=== PATIENT | male | born 1975 | race Caucasian/White ===

== ENCOUNTER 2016-09-20 06:00 | Inpatient (IN) | payer OTHER ==
[2016-09-14 13:20] VITALS: BMI 27.6
[2016-09-20] MEDS ORDERED: BUPIVACAINE HCL/PF 0.5% (5MG/ML) 10 ML VIAL ONE (07:05)
[2016-09-20] MEDS ORDERED: MIDAZOLAM HCL 2 MG/2 ML SINGLE DOSE VIAL ONE ×3 (07:09→08:40)
[2016-09-20] MEDS ORDERED: CEFAZOLIN 2 GM in DEXTROSE 5%-WATER - 100 ML IVPB ONE (07:09)
[2016-09-20] MEDS ORDERED: oxyCODONE HCL 10 MG SUSTAINED ACTING TABLET PO STA (07:09)
[2016-09-20] MEDS ORDERED: methylPREDNISolone ACET (DEPO) 40 MG/1 ML VIAL ONE (07:19)
[2016-09-20] MEDS ORDERED: BUPIVACAINE HCL/PF 2.5 MG/ML - 30 ML VIAL IJ ONE (07:19)
[2016-09-20] MEDS ORDERED: THROMBIN (BOVINE) 5,000 UNIT VIAL TP ONE ×2 (07:19→09:28)
[2016-09-20] MEDS ORDERED: LIDOCAINE 1%/EPI 1:100000 (20 ML MULTI DOSE VIAL) ONE (07:19)
--- NOTE | 2016-09-20 07:46 | HP ---
History & Physical Update - History History: No Change - Physical Physical: No Change - Assessment Assessment: No Change - Plan Plan: No Change
[2016-09-20] MEDS ORDERED: PROPOFOL 20 ML ONE ×2 (08:14→08:50)
[2016-09-20] MEDS ORDERED: LIDOCAINE 1%/EPI 1:100000 (50 ML MULTI DOSE VIAL) INF ONE (08:15)
[2016-09-20] MEDS ORDERED: ceFAZolin SODIUM 1 GM VIAL ONE (08:21)
[2016-09-20] MEDS ORDERED: methylPREDNISolone ACET (DEPO) 40 MG/1 ML VIAL IM ONE ×2 (09:25→09:47)
[2016-09-20] MEDS ORDERED: GELATIN SPONGE,ABSORBABLE 1 GM PACKET TP ONE (09:29)
[2016-09-20] MEDS ORDERED: BUPIVACAINE HCL/PF 0.25% (2.5MG/ML) 10 ML VIAL IJ ONE (09:47)
[2016-09-20] MEDS: ACETAMINOPHEN/CAFFEINE/BUTALBITAL 1 TAB PO ONE ×2 (10:15→18:55)
[2016-09-20] MEDS ORDERED: ONDANSETRON 4 MG/2 ML VIAL IVPUSH PRN ×2 (10:20→12:33)
--- NOTE | 2016-09-20 10:28 | OP ---
Operative Note - Note: Operative Date: 09/20/16 Pre-Operative Diagnosis: L4-L5 spinal stenosis Operation: laminectomy of L4-L5 with repair of dural tear Surgeon: David Turner Surveillance Director: Magalis Iqbal Anesthesiologist/PLASTIC SURGERY TECHNICIAN: Kody Lopez Anesthesia: Spinal Estimated Blood Loss (mls): 40 Fluid Volume Replaced (mls): 1,800 Operative Report Dictated: Yes
--- NOTE | 2016-09-20 10:29 | SURG ---
Surgery Health Facilities Surveyor Note Health Facilities Surveyor: Magalis Iqbal PA-C Date of Service: 09/20/16 Diagnosis: L4-L5 spinal stenosis Procedure: L4-L5 laminectomy with repiar of dural tear I was present for the entirety of the operative procedure. For further detail, please refer to operative report. Visit type - Case Type Case Type: Scheduled Admission - Emergency Emergency Visit: No - New patient This patient is new to me today: Yes Date on this admission: 09/20/16 - Critical Care Critical Care patient: No
[2016-09-20] MEDS ORDERED: oxyCODONE HCL 5 MG TABLET PO PRN ×2 (11:04)
[2016-09-20] MEDS ORDERED: ONDANSETRON 4 MG/2 ML VIAL ONE (11:08)
--- NOTE | 2016-09-20 11:55 | OP ---
DATE OF OPERATION: 09/20/2016 PREOPERATIVE DIAGNOSIS: Spinal stenosis, L4-5. POSTOPERATIVE DIAGNOSIS: Spinal stenosis, L4-5. PROCEDURE PERFORMED: 1. Laminectomy at L4-5. 2. Repair of dural tear. SURGEON: David Turner MD CHIP CRUSHER OPERATOR: BEENA Liu ESTIMATED BLOOD LOSS: 50 mL INTRAVENOUS FLUIDS: Per Anesthesia. ANESTHESIA: Spinal. COMPLICATIONS: Dural tear repaired with 5-0 Prolene suture. DISPOSITION: Patient brought to the PACU in stable condition. INDICATION FOR SURGERY: The patient is a 41-year-old gentleman who has been suffering from pain from his back, down his legs. X-rays and MRI were completed which noted that he had spinal stenosis at L4-5 secondary to a cyst. He had gone through an exhaustive course of treatment for this which included medications, physical therapy, as well as injections. Unfortunately, his pain continued to persist despite all this. At this point, risks, benefits, and alternatives were discussed, and the patient consented to surgery. DESCRIPTION OF PROCEDURE: Patient brought to the operating room by anesthesia staff. After appropriate patient identification was performed, spinal anesthesia was given. He was placed prone onto the Ej frame with all areas of bony prominences well padded. Two needles were placed into his back to hayden off the L4-5 segment and x-rays taken to confirm this as correct. Elton were removed, and 10 mL of lidocaine with epinephrine were injected into his back at the time his back was prepped and draped in a sterile manner. At this point, timeout was completed. An incision was made from the top of L4 down to the bottom of L5. Dissection was carried down to the fascia. Fascia was then split open at this time, and appropriate retractors were then placed in. A spinal needle was placed onto the L4 lamina. An x-ray was taken to confirm this as correct. At this point, the microscope was brought in. The L4-5 interspinous ligament was removed. Portions of the L4 and L5 lamina were removed. The flavum was peeled off. While performing the laminectomy, a dural tear was noticed. The dural fluid was controlled. A 5-0 Prolene suture was placed to perform a watertight closure. The decompression was completed such that by the end of the procedure, the L5 nerve root appeared to be well decompressed. Tisseel was placed over the nerve root. The fascia was closed with a No. 1 Vicryl suture. The subcutaneous tissues were closed with 2-0 Vicryl suture. Skin was closed with 3-0 Monocryl suture. Dermabond was applied. Steri-Strips were applied. A sterile dressing was applied. Patient was placed supine on the OR bed and brought to the PACU in stable condition. Javier CHILDS/[id number]
[2016-09-20] MEDS ORDERED: oxyCODONE HCL 5 MG TABLET ONE (12:01)
[2016-09-20] MEDS ORDERED: LACTATED RINGERS SOLUTION 1,000 ML IV SCH ×2 (12:30→12:45)
[2016-09-20] MEDS: HYDROmorphone HCL CARPU-JECT 1 MG/1 ML DISP.SYRIN ONE ×2 (12:39→12:50)
[2016-09-20] MEDS: diazePAM 5 MG TABLET PO ONE ×2 (12:40→18:55)
[2016-09-20] MEDS ORDERED: ACETAMINOPHEN/CAFFEINE/BUTALBITAL 1 TAB PO PRN (12:45)
[2016-09-20] MEDS ORDERED: HYDROmorphone HCL CARPU-JECT 1 MG/1 ML DISP.SYRIN ONE (13:02)
[2016-09-20] MEDS ORDERED: HYDROmorphone HCL CARPU-JECT 1 MG/1 ML DISP.SYRIN IVPUSH PRN (13:22)
[2016-09-20] MEDS ORDERED: HYDROmorphone *PCA* 10MG/50ML DISP.SYRIN PCA ONE (13:35)
[2016-09-20] MEDS ORDERED: HYDROmorphone *PCA* 10MG/50ML DISP.SYRIN PCA SCH (14:30)
[2016-09-20] MEDS: HYDROmorphone *PCA* 10MG/50ML DISP.SYRIN PCA SCH ×2 (17:50→18:56)
[2016-09-20] MEDS: LACTATED RINGERS SOLUTION 1,000 ML IV SCH (18:55)
[2016-09-21] MEDS: HYDROmorphone *PCA* 10MG/50ML DISP.SYRIN PCA SCH (05:18)
--- NOTE | 2016-09-21 09:04 | PN ---
Progress Note (short form) - Note Progress Note: 41M POD1 s/p lumbar laminectomy under spinal anesthetic. 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 Pt still states he has moderate to severe pain that is positional. NPO for possible surgery today. Continue DIRECTOR OF CONTENT AND PROGRAMMING
[2016-09-21] MEDS: LACTATED RINGERS SOLUTION 1,000 ML IV SCH (10:33)
[2016-09-21] MEDS ORDERED: ROCURONIUM BROMIDE 50 MG/5 ML VIAL ONE (15:12)
[2016-09-21] MEDS ORDERED: MIDAZOLAM HCL 2 MG/2 ML SINGLE DOSE VIAL ONE (15:12)
[2016-09-21] MEDS ORDERED: PROPOFOL 20 ML ONE (15:12)
[2016-09-21] MEDS ORDERED: GENTAMICIN SO4 80 MG/2 ML VIAL ONE (15:16)
[2016-09-21] MEDS ORDERED: BUPIVACAINE HCL/PF 0.5% (5MG/ML) 10 ML VIAL ONE (15:37)
[2016-09-21] MEDS ORDERED: ONDANSETRON 4 MG/2 ML VIAL ONE ×2 (16:14→17:32)
[2016-09-21] MEDS ORDERED: DEXAMETHASONE SOD PHOSPHATE 4 MG/1 ML VIAL ONE (16:14)
[2016-09-21] MEDS ORDERED: ceFAZolin SODIUM 1 GM VIAL ONE (16:14)
[2016-09-21] MEDS ORDERED: ceFAZolin SODIUM 1 GM VIAL IVPB ONE (16:15)
[2016-09-21] MEDS ORDERED: NEOSTIGMINE METHYLSULFATE 0.5 MG/ML - 10 ML MDV ONE (17:31)
[2016-09-21] MEDS ORDERED: GLYCOPYRROLATE 0.2 MG/1 ML VIAL ONE (17:32)
[2016-09-21] MEDS ORDERED: HYDROmorphone HCL CARPU-JECT 1 MG/1 ML DISP.SYRIN IVPUSH PRN ×3 (17:52→18:36)
[2016-09-21] MEDS ORDERED: ONDANSETRON 4 MG/2 ML VIAL IVPUSH PRN ×2 (17:52→18:32)
[2016-09-21] MEDS ORDERED: MEPERIDINE HCL CARPU-JECT 25 MG/1 ML DISP.SYRIN ONE (17:52)
[2016-09-21] MEDS ORDERED: MEPERIDINE HCL CARPU-JECT 50 MG/1 ML DISP.SYRIN IVPUSH ONE (17:54)
--- NOTE | 2016-09-21 17:54 | OP ---
Operative Note - Note: Operative Date: 09/21/16 Pre-Operative Diagnosis: Repair L4/5 durotomy Operation: Exploration, irrigation, primary repair of L4/5 durotomy with patch Post-Operative Diagnosis: Same as Pre-op Surgeon: Aries Pride Expeditionary Fighting Vehicle Crewman: Ross Obrien Anesthesiologist/HIM ASSISTANT: Kody Lopez Anesthesia: General Estimated Blood Loss (mls): 25 Drains, Volume Out (mls): 100 Fluid Volume Replaced (mls): 1,000 Operative Report Dictated: Yes
--- NOTE | 2016-09-21 17:55 | SURG ---
Surgery Assembly Member Note Assembly Member: Ross Obrien PA-C Date of Service: 09/21/16 Diagnosis: L4/5 durotomy s/p L4/5 laminectomy Procedure: Exploration, irrigation, repair L4/5 durotomy with patch I was present for the entirety of the operative procedure. For further detail, please refer to operative report. Visit type - Case Type Case Type: Scheduled Admission
[2016-09-21] MEDS ORDERED: LACTATED RINGERS SOLUTION 1,000 ML IV SCH ×3 (18:00→18:32)
[2016-09-21] MEDS ORDERED: HYDROmorphone *PCA* 10MG/50ML DISP.SYRIN PCA SCH (18:32)
[2016-09-21] MEDS ORDERED: MEPERIDINE HCL CARPU-JECT 25 MG/1 ML DISP.SYRIN IVPUSH ONE (18:32)
[2016-09-21] MEDS ORDERED: ACETAMINOPHEN/CAFFEINE/BUTALBITAL 1 TAB PO PRN (18:32)
[2016-09-21] MEDS ORDERED: HYDROmorphone HCL CARPU-JECT 2 MG/1 ML DISP.SYRIN ONE (19:13)
[2016-09-21] MEDS: oxyCODONE HCL 5 MG TABLET PO PRN ×2 (20:34→22:47)
[2016-09-22] MEDS: oxyCODONE HCL 5 MG TABLET PO PRN ×4 (02:34→09:58)
[2016-09-22] MEDS: LACTATED RINGERS SOLUTION 1,000 ML IV SCH ×2 (04:00→13:03)
[2016-09-22] MEDS ORDERED: ceFAZolin 2 GRAM PREMIX BAG IVPB SCH ×2 (07:57)
--- NOTE | 2016-09-22 08:55 | PN ---
Progress Note (short form) - Note Progress Note: This is a note for 09/21/2016 Patient seen in AM. Neuro exam notes 5/5 strength in his B/L LE and sensation intact. Patient continues to have pain in the back and headaches. When sitting him up patient began to experience increased nausea and vomiting. I had a long discussion with the patient regarding the dural tear and our attempt to fix the tear. I told him that there is a chance that the tear has not been completely fixed and he may still have continued leakage. I told him that we have a few options: 1) We can maintain him on bedrest with the hope that the tear will heal itself. This would require 24-48 hours of bedrest. 2) We can take him back to the OR and explore the tear. If it is not completely closed we can attempt a patch. I informed him that I reached out to my neurosurgery colleague for assistance on this. Risks and benefits of each were discussed with the patient Patient elected to proceed with revision. He will be transferred to [facility] under the care of Dr Peña for surgical exploration. Patient is in agreement with the plan.
[2016-09-22] MEDS: ceFAZolin 2 GRAM PREMIX BAG IVPB SCH ×2 (09:52→17:16)
[2016-09-22] MEDS ORDERED: oxyCODONE HCL 5 MG TABLET PO PRN (10:49)
[2016-09-22] MEDS: ACETAMINOPHEN 325 MG TABLET (FP) PO PRN ×2 (10:58→14:28)
--- NOTE | 2016-09-22 13:31 | CONSULT ---
Consultation: REQUESTING PROVIDER: Dr. Veliz CONSULT REQUEST: We have been asked to medically evaluate this patient for s/p neurosurgery complication. HISTORY OF PRESENT ILLNESS: This is a 41 year old male without significant past medical history brought over from [place] s/p lamenectomy on 09/20, and L4/5 durotomy repair done on . Patient had neurosurgery procedure with Dr. Kellie Orta, that involved disc herniation repair and "cyst removal", according to the patient. Surgery complication include a dura mater tear, repair was done by Dr. Veliz. Pain is currently controlled, with roxicodone. He does admit to excruciating pain when sitting up. He is most comfortable went laying flat. He does admit to one headache this morning, that has subsided, relieved by fioricet. He denies current pain, numbness, tingling, or decreased sensation of extremities. Denies fever, chills, n, v. REVIEW OF SYSTEMS: CONSTITUTIONAL: Absent: fever, chills, diaphoresis, generalized weakness, malaise, loss of appetite, weight change HEENT: Absent: rhinorrhea, nasal congestion, throat pain, throat swelling, difficulty swallowing, mouth swelling, ear pain, eye pain, visual changes CARDIOVASCULAR: Absent: chest pain, syncope, palpitations, irregular heart rate, lightheadedness , peripheral edema RESPIRATORY: Absent: cough, shortness of breath, dyspnea with exertion, orthopnea, wheezing, stridor, hemoptysis GASTROINTESTINAL: Absent: abdominal pain, abdominal distension, nausea, vomiting, diarrhea, constipation, melena, hematochezia GENITOURINARY: Absent: dysuria, frequency, urgency, hesitancy, hematuria, flank pain, genital pain MUSCULOSKELETAL: Absent: myalgia, arthralgia, joint swelling, back pain, neck pain SKIN: Absent: rash, itching, pallor HEMATOLOGIC/IMMUNOLOGIC: Absent: easy bleeding, easy bruising, lymphadenopathy, frequent infections ENDOCRINE: Absent: unexplained weight gain, unexplained weight loss, heat intolerance, cold intolerance NEUROLOGIC: Positive: headache Absent: focal weakness or paresthesias, dizziness, unsteady gait, seizure, mental status changes, bladder or bowel incontinence PSYCHIATRIC: Absent: anxiety, depression, suicidal or homicidal ideation, hallucinations. PHYSICAL EXAMINATION Vital Signs - 24 hr 09/21/16 09/21/16 09/21/16 13:55 17:53 18:00 Temperature 99.4 F 98.1 F Pulse Rate 90 94 H Respiratory 20 21 Rate Blood Pressure 159/81 160/88 O2 Sat by Pulse 95 100 Oximetry (%) 09/21/16 09/21/16 09/21/16 18:05 18:20 18:35 Temperature Pulse Rate 108 H 115 H 94 H Respiratory 16 18 16 Rate Blood Pressure 153/81 130/70 128/75 O2 Sat by Pulse 99 100 100 Oximetry (%) 09/21/16 09/21/16 09/21/16 18:50 19:05 19:20 Temperature Pulse Rate 97 H 84 82 Respiratory 16 16 18 Rate Blood Pressure 128/75 124/77 134/79 O2 Sat by Pulse 98 98 98 Oximetry (%) 09/21/16 09/21/16 09/21/16 19:35 20:30 21:00 Temperature 99 F 99.7 F H Pulse Rate 86 98 H Respiratory 16 18 18 Rate Blood Pressure 136/76 115/49 O2 Sat by Pulse 99 97 97 Oximetry (%) 09/22/16 09/22/16 09/22/16 01:59 06:00 08:30 Temperature 99.7 F H 100.0 F H 98.8 F Pulse Rate 95 H 83 97 H Respiratory 19 20 20 Rate Blood Pressure 108/50 109/63 125/63 O2 Sat by Pulse Oximetry (%) GENERAL: Laying in bed on his left side, Awake, alert, and fully oriented, in no acute distress. HEAD: Normal with no signs of trauma. EYES: Pupils equal, round and reactive to light, extraocular movements intact, sclera anicteric, conjunctiva clear. No lid lag. EARS, NOSE, THROAT: Ears normal, nares patent, oropharynx clear without exudates. Moist mucous membranes. NECK: Normal range of motion, supple without lymphadenopathy, JVD, or masses. LUNGS: Breath sounds equal, clear to auscultation bilaterally. No wheezes, and no crackles. No accessory muscle use. HEART: Regular rate and rhythm, normal S1 and S2 without murmur, rub or gallop. ABDOMEN: Soft, nontender, not distended, normoactive bowel sounds, no guarding, no rebound, no masses. No hepatomegaly or splenomegaly. MUSCULOSKELETAL: Normal range of motion at all joints. No bony deformities or tenderness. No CVA tenderness. UPPER EXTREMITIES: 2+ pulses, warm, well-perfused. No cyanosis. No clubbing. Cap refill <2 seconds. No peripheral edema. LOWER EXTREMITIES: 2+ pulses, warm, well-perfused. No calf tenderness. No peripheral edema. NEUROLOGICAL: Cranial nerves II-XII intact. Normal speech. gait not observed PSYCHIATRIC: Cooperative. Good eye contact. Appropriate mood and affect. SKIN: Warm, dry, normal turgor, no rashes or lesions noted. Incision site with dressing intact; no surrounding erythema, edema Active Medications Generic Name Dose Route Start Last Admin Trade Name Freq PRN Reason Stop Dose Admin Acetaminophen 650 mg 09/22/16 10:49 09/22/16 10:58 Tylenol - PO 09/25/16 10:48 650 mg Q4H PRN Administration PAIN Acetaminophen/Butalbital/Caffeine 1 tablet 09/21/16 18:32 09/22/16 08:48 Fioricet - PO 1 tablet Q4H PRN Administration Cefazolin Sodium/Dextrose 2 gm 09/22/16 10:00 09/22/16 09:52 Ancef 2 Gm Premixed Ivpb - IVPB 09/23/16 00:00 2 gm Q8H-IV GEORGES Administration Lactated Ringer's 1,000 mls @ 125 mls/hr 09/21/16 18:32 09/22/16 13:03 Lactated Ringers Solution IV 125 mls/hr ASDIR GEORGES Administration Oxycodone HCl 10 mg 09/22/16 10:49 Roxicodone - PO Q4H PRN PAIN ASSESSMENT/PLAN: 41 year old male no PMHX expect for disc herniation, s/p primary repair of L4/5 durotomy patch on 09/21/16. #L4-5 disc herniation, s/p L4-L5 laminectomy and dural tear repair 09/20, s/p repair of L4-L5 durotomy with patch 09/21 -pain controlled roxicodone 10mg q4h prn pain -dressing as per neurology -cbc, bmp -antibiotics for 24hrs then dc -pt eval #headaches secondary to CSF leak vs migraine -fioricet prn Dispo: We will continue to follow the patient. Thank you for this consultative opportunity. Visit type - Emergency Visit Emergency Visit: Yes ED Registration Date: 09/21/16 Care time: The patient presented to the Emergency Department on the above date and was hospitalized for further evaluation of their emergent condition. - New Patient This patient is new to me today: Yes Date on this admission: 09/23/16 - Critical Care Critical Care patient: No
--- NOTE | 2016-09-22 14:33 | PN ---
Teaching Attending Note Name of Resident: Imani Schmitt ATTENDING PHYSICIAN STATEMENT I saw and evaluated the patient. I reviewed the resident's note and discussed the case with the resident. I agree with the resident's findings and plan as documented. SUBJECTIVE: This is a 41-year-old man with a history of migraine headaches, L4- 5 disc herniation who underwent L4-L5 laminectomy and repair of dural tear by Dr. Turner on 09/20 at [facility]. 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 It was thought that the dural tear was not completely fixed and he was given the options of conservative management with 24-48 hours of bedrest or surgical exploration. He chose surgical intervention and he was transferred on 09/21 to [facility] where he underwent exploration, irrigation, and primary repair of L4-L5 durotomy with patch by Dr. Pride. He had a headache this morning when he awoke. It resolved with Fioricet. He continues to have back pain and gets relief with oxycodone/acetaminophen. OBJECTIVE: Vital Signs Period Temp Pulse Resp BP Sys/Sifuentes Pulse Ox Last 24 Hr 98.1 F-100.0 F 82-115 14-21 108-160/49-88 97-100 HEART: S1S2, RRR LUNGS: Clear ABDOMEN: Soft, non-tender, non-distended, normal BS EXTREMITIES: No edema ASSESSMENT AND PLAN: This is a 41-year-old man with a history of migraine headaches, L4-5 disc herniation 1. L4-5 disc herniation, s/p L4-L5 laminectomy and dural tear repair 09/20, s/p repair of L4-L5 durotomy with patch 09/21 - Pain control with oxycodone/acetaminophen - Activity as per neurosurgery 2. Migraine headaches - Continue Fioricet as needed
[2016-09-22] MEDS ORDERED: morphine CARPU-JECT 2 MG/1 ML DISP.SYRIN IVPUSH PRN (14:44)
[2016-09-22] MEDS ORDERED: diazePAM 5 MG TABLET PO ONE (15:48)
[2016-09-22] MEDS ORDERED: diazePAM 5 MG TABLET PO PRN (15:48)
--- NOTE | 2016-09-22 15:54 | PN ---
Progress Note, Physician Chief Complaint: S/P REPAIR OF DURAL TEAR SP LAMINECTOMY. POST OP DAY ONE History of Present Illness: PATIENT RECEIVED GENERAL ANESTHESIA FOR THE SURGERY - Current Medication List Current Medications: Active Medications Acetaminophen (Tylenol -) 650 mg PO Q4H PRN PRN Reason: PAIN Stop: 09/25/16 10:48 Last Admin: 09/22/16 14:28 Dose: 650 mg Acetaminophen/Butalbital/Caffeine (Fioricet -) 1 tablet PO Q4H PRN Last Admin: 09/22/16 08:48 Dose: 1 tablet Cefazolin Sodium/Dextrose (Ancef 2 Gm Premixed Ivpb -) 2 gm IVPB Q8H-IV GEORGES Stop: 09/23/16 00:00 Last Admin: 09/22/16 09:52 Dose: 2 gm Diazepam (Valium -) 5 mg PO ONCE ONE Stop: 09/22/16 15:49 Diazepam (Valium -) 5 mg PO Q8H PRN PRN Reason: PAIN Docusate Sodium (Colace -) 100 mg PO BID GEORGES Lactated Ringer's (Lactated Ringers Solution) 1,000 mls @ 125 mls/hr IV ASDIR GEORGES Last Admin: 09/22/16 13:03 Dose: 125 mls/hr Morphine Sulfate (Morphine Injection -) 1 mg IVPUSH Q3H PRN PRN Reason: PAIN Oxycodone HCl (Roxicodone -) 10 mg PO Q4H PRN PRN Reason: PAIN Last Admin: 09/22/16 14:29 Dose: 10 mg - Objective Vital Signs: Vital Signs Temperature 98.5 F 09/22/16 14:59 Pulse Rate 78 09/22/16 14:59 Respiratory Rate 20 09/22/16 14:59 Blood Pressure 120/71 09/22/16 14:59 O2 Sat by Pulse Oximetry (%) 97 09/21/16 21:00 Constitutional: Yes: Well Nourished Neck: Yes: WNL Cardiovascular: Yes: WNL Respiratory: Yes: WNL Assessment/Plan PATIENT COMPLAINING OF SWOLLEN LIP LOWER LIP, RIGHT SIDE. IT IS NOT TOO BOTHERSOME. LIKELY DUE TO COMPRESSION BY THE ETT WHILE PRONE, NO INTERVENTION NECESSARY. COMPLAINING OF PAIN ESPECIALLY WITH MOVING. OXYCODONE DOES NOT LAST THE FULL FOUR HOURS BETWEEN DOSES. WILL INCREASE FREQUENCY TO Q3H PRN AND ADD VALIUM FOR ADJUVANT PAIN CONTROL. OTHERWISE, DEPT OF ANESTHESIOLOGY WILL SIGN OFF CARE AT THIS TIME
[2016-09-22] MEDS: HYDROmorphone HCL CARPU-JECT 1 MG/1 ML DISP.SYRIN IVPB PRN ×2 (16:23→21:51)
[2016-09-22] MEDS: DOCUSATE SODIUM 100 MG CAPSULE (FP) PO SCH ×2 (16:23→21:52)
[2016-09-22] MEDS: SENNOSIDES 8.6MG TABLET (FP) PO SCH (22:00)
[2016-09-23] MEDS: LACTATED RINGERS SOLUTION 1,000 ML IV SCH (00:20)
[2016-09-23] MEDS: ACETAMINOPHEN 325 MG TABLET (FP) PO PRN ×3 (00:21→13:19)
[2016-09-23] MEDS: oxyCODONE HCL 5 MG TABLET PO PRN ×3 (00:21→13:17)
[2016-09-23] MEDS: HYDROmorphone HCL CARPU-JECT 1 MG/1 ML DISP.SYRIN IVPB PRN ×2 (03:09→10:02)
[2016-09-23 09:03] LABS: BASOPHIL 0.3 % (0-2.0); EOSINOPHIL 0.9 % (0-4.5); MCH 31.9 pg (25.7-33.7); MCHC 34.2 g/dl (32.0-35.9); MEAN CELL VOLUME 93.2 fl (80-96); MEAN PLT VOLUME 10.1 fl (7.5-11.1); NEUTROPHILS 70.8 % (42.8-82.8); PLATELET COUNT 139 K/MM3 (134-434); RDW 13.4 % (11.9-15.9); WHITE BLOOD COUNT 8.1 K/mm3 (4.0-10.0)
--- NOTE | 2016-09-23 09:20 | PN ---
Physical Exam: SUBJECTIVE: Patient seen and examined The patient is a 41-year-old man with a history of migraine headaches, L4-5 disc herniation, now POD#2 s/p repair of dural tear hat followed laminectomy. He understands the plan of care. He has no headache. He is compaining of mild to moderate pain at the surgical site as well as in his bileteral lower back, hips and knees. He denies lower extremity weakness or paresthesias, bladder or bowel incontinence. OBJECTIVE: Vital Signs Period Temp Pulse Resp BP Sys/Sifuentes Pulse Ox Last 24 Hr 98.5 F-101.0 F 78-97 20-20 117-126/55-71 98 HEART: S1S2, RRR LUNGS: Clear ABDOMEN: Soft, non-tender, non-distended, normal BS EXTREMITIES: No edema, full ROM, intact LE strength and sensation SKIN: Surgical site examination deferred to neurosurgery as occlusive bandage is in place. There is no surrounding erythema or increased warmth. Laboratory Results - last 24 hr 09/23/16 07:25 WBC 8.1 RBC 3.88 L Hgb 12.4 Hct 36.2 MCV 93.2 MCH 31.9 MCHC 34.2 RDW 13.4 Plt Count 139 MPV 10.1 Neutrophils % 70.8 Lymphocytes % 18.6 Monocytes % 9.4 Eosinophils % 0.9 Basophils % 0.3 Active Medications Generic Name Dose Route Start Last Admin Trade Name Freq PRN Reason Stop Dose Admin Acetaminophen 650 mg 09/22/16 15:56 09/23/16 07:01 Tylenol - PO 09/25/16 10:48 650 mg Q4H PRN Administration PAIN Diazepam 5 mg 09/22/16 15:48 09/23/16 00:21 Valium - PO 5 mg Q8H PRN Administration PAIN Docusate Sodium 100 mg 09/22/16 15:15 09/22/16 21:52 Colace - PO 100 mg BID GEORGES Administration Hydromorphone HCl 1 mg 09/22/16 15:58 09/23/16 03:09 Dilaudid Injection - IVPB 1 mg Q4H PRN Administration PAIN Lactated Ringer's 1,000 mls @ 125 mls/hr 09/21/16 18:32 09/23/16 00:20 Lactated Ringers Solution IV 125 mls/hr ASDIR GEORGES Administration Oxycodone HCl 10 mg 09/22/16 15:56 09/23/16 07:01 Roxicodone - PO 10 mg Q3H PRN Administration PAIN Senna 1 tab 09/22/16 22:00 09/22/16 22:00 Senna - PO Not Given BID [facility] ASSESSMENT/PLAN: #ORTHO/SPINE L4-5 disc herniation, s/p L4-L5 laminectomy and dural tear repair 09/20, s/p repair of L4-L5 durotomy with patch 09/21 Continue pain control with prn tylenol, oxycodone/acetaminophen, dilaudid, valium Activity as per neurosurgery Today's evaluation is pending Overnight fever noted #ID Overnight fever noted. Of note, pt adamantly claims that temperature was 100.1 and not 101. He states he asked several times and saw the reading. He was not pancultured It is now normal He has no leukocytosis There are no obvious signs of focal infection Will follow fever curve and ariza culture if he spikes Await neurosurgical evaluation today #NEURO Chnonic, intermittent, migraine headaches Asymptomatic #FEN Regular diet Change LR to D51/2NS at 125ml for maintenance #PROPHYLAXIS Senna and colace while receiving opioids Eating Ambulating #DISPOSITION As per neurosurgery Would be hesitant to dc today due to overnight fever Visit type - Emergency Visit Emergency Visit: Yes ED Registration Date: 09/21/16 Care time: The patient presented to the Emergency Department on the above date and was hospitalized for further evaluation of their emergent condition. - New Patient This patient is new to me today: Yes Date on this admission: 09/23/16 - Critical Care Critical Care patient: No
[2016-09-23] MEDS ORDERED: DEXTROSE 5%-0.45% SALINE 1,000 ML IV SCH (09:30)
[2016-09-23 09:33] LABS: ANION GAP 7 (8-16); CO2 31 mmol/L (21-32); CREATININE 0.9 mg/dL (0.7-1.3); GLUCOSE,RANDOM 89 mg/dL (74-106)
[2016-09-23 09:46] VITALS: BP 123/74; PULSE 81; TEMP 98.1
[2016-09-23] MEDS: DOCUSATE SODIUM 100 MG CAPSULE (FP) PO SCH (10:03)
[2016-09-23] MEDS: SENNOSIDES 8.6MG TABLET (FP) PO SCH (10:08)
--- NOTE | 2016-09-23 15:05 | DS ---
"Physical Examination Vital Signs: Vital Signs Temperature 98.1 F 09/23/16 09:00 Pulse Rate 81 09/23/16 09:00 Respiratory Rate 20 09/23/16 09:00 Blood Pressure 123/74 09/23/16 09:00 O2 Sat by Pulse Oximetry (%) 98 09/23/16 09:00 Findings/Remarks: See todays progress note for full details. The patient spoke by phone to Dr. Turner and I also spoke by phone to Dr. Orta. The patient is ambulating with well controlled back pain and no lower extremity easkness or paresthesias, no headache. He would like to go home. He has remained afebrile since the last elevated temperature reading. Dr. Orta is aware and feels discharge is appropriate. He can follow up with [facility]. Labs: CBC, BMP 09/23/16 07:25 09/23/16 07:25 Discharge Summary Reason For Visit: SPINAL STENOSIS Condition: Stable - Instructions Diet, Activity, Other Instructions: Dr. Turner's Discharge Instructions Dear, Kin, Regular diet as tolerated. No bending and or twisting at the waist. No lifting greater than 5 pounds. Follow-up with your surgeon in two weeks. Keep area clean and dry. May remove dressing in two (2) days and replace with clean gauze and occlusive dressing such as a tegaderm. NO BATHS. You may shower starting two (2) days after your surgery. When showering, leave the occlusive(plastic) dressing in place and change if it appears wet. Avoid direct water stream onto your incision. If you develop fever, drainage from your incision please call your surgeon. Follow-up Referred to following clinics/specialists for follow-up care: David Turner MD [facility]/[address], [address] [place] [address] [phone] Rx Written Rx Dispensed Drug Quantity Days Supply Prescriber Name 09/03/2016 09/04/2016 oxycodone-acetaminophen 5-325 mg tab 90 30 Vadim Blevins MD This report was requested by: Magalis Iqbal | Reference #: [id number] Disposition: HOME - Home Medications Comprehensive Discharge Medication List: Ambulatory Orders Oxycodone HCl/Acetaminophen [Percocet 5-325 mg Tablet] 1 - 2 tab PO Q4H PRN Acetaminophen/Caffeine/Butalb [Fioricet -] 1 tab PO Q4H PRN #30 tablet MDD 6 05/04 This patient is new to me today: No Emergency Visit: No Critical Care patient: No - Discharge Referral [facility]erred to [facility] No"
[2016-09-23] MEDS ORDERED: oxyCODONE HCL 5 MG TABLET PO ONE (15:26)
== END 2016-09-23 17:00 | disposition home or self-care (01) | DRG 321 ==
LOC: FASU 06:00 → FM/S 18:00 → J6S 09-21 13:21 → FASU 09-21 17:58
PROVIDERS: ADMIT Orthopaedic Surgery Orthopaedic Surgery of the Spine; ATTEND Internal Medicine
PROC: 00QT0ZZ Repair Spinal Meninges, Open Approach (ICD-10-PCS; 2016-09-21)
PROC: 0QB00ZZ Excision of Lumbar Vertebra, Open Approach (ICD-10-PCS; principal; 2016-09-21 14:15)
DX: M48.06 Spinal stenosis, lumbar region (principal); G96.11 Dural tear; G43.909 Migraine, unspecified, not intractable, without status migrainosus; M51.26 Other intervertebral disc displacement, lumbar region
CPT/HCPCS: 36415; 72100-TC; 80048; 85025; 94010; 94760